=== PATIENT | male | born 1980 | race Caucasian/White ===

== ENCOUNTER 2021-08-18 20:00 | Outpatient (CLI) | payer BC, SELFPAY | END 2021-08-18 20:01 | disposition home or self-care (01) | LOC: SLEEP 08-19 07:47 | PROVIDERS: Family Provider Family Medicine; PCP Family Medicine; Visit Provider Nurse Practitioner Family | DX: G47.10 Hypersomnia, unspecified (principal); R53.83 Other fatigue; R06.83 Snoring | CPT/HCPCS: 95810 ==